=== PATIENT | male | born 1970 | race Caucasian/White ===

== ENCOUNTER 2017-03-08 02:33 | Emergency (ER) | payer BC ==
[~2017-03-08] VITALS: Ht 167.6 cm; Wt 66.7 kg
[2017-03-08] MEDS ORDERED: DEXAMETHASONE 10 MG/ML (DECADRON) 1 ML VIAL ONE (04:07)
--- NOTE | 2017-03-08 04:12 | ED EENT ---
History of Present Illness General Chief Complaint: Oral/Throat Problems Stated Complaint: SORE THROAT,DRAINAGE,POSS FEVER Nursing Triage Note: Patient advises he has been experiencing nasal drainage accompanied by a sore throat since last which has not improved. He denies hx. of fever. Source: patient Exam Limitations: no limitations History of Present Illness Time seen by provider: 03:57 Initial Comments Here with report of upper respiratory symptoms including sore throat and runny nose. Tonight he felt like the sore throat was worsening and that his vocal cords were getting tight. Complains of nasal congestion. This did improve after using [place] tonight. Denies fever. Timing/Duration: gradual Severity: moderate Location: nose, throat Prearrival Treatment: over the counter meds Modifying Factors: Worse With Lying Down, Improves With Rest Associated Symptoms: cough, No fever, nasal congestion/drainage, sore throat, No voice change Allergies and Home Medications Allergies Coded Allergies: No Known Drug Allergies (Unverified , 03/08/17) Review of Systems Constitutional: see HPI, No chills, No fever Eyes: No Symptoms Reported Ears: No Symptoms Reported Nose: see HPI, congestion, clear discharge Mouth: no symptoms reported Throat: see HPI, pain, swelling Respiratory: cough, No short of breath Cardiovascular: no symptoms reported Gastrointestinal: no symptoms reported Skin: no symptoms reported Past Uyhivlj-Yirlej-Drbjei Hx Patient Social History Alcohol Use: Denies Use Recreational Drug Use: No Smoking Status: Never a Smoker Recent Foreign Travel: No Contact w/Someone Who Travel: No Recent Infectious Disease Expo: No Recent Hopitalizations: No Physical Abuse: No Sexual Abuse: No Seasonal Allergies Seasonal Allergies: No Surgeries History of Surgeries: Yes (sinus polyp removal) Respiratory History of Respiratory Disorde: No Cardiovascular History of Cardiac Disorders: No Neurological History of Neurological Disord: No Genitourinary History of Genitourinary Disor: No Gastrointestinal History of Gastrointestinal Di: No Musculoskeletal History of Musculoskeletal Dis: No Endocrine History of Endocrine Disorders: No HEENT History of HEENT Disorders: No Cancer History of Cancer: No Psychosocial History of Psychiatric Problem: No Suicide Risk Score: 0 Blood Transfusions History of Blood Disorders: No Reviewed Nursing Assessment Reviewed/Agree w Nursing PMH: Yes Physical Exam Vital Signs Vital Sign - Last 12Hours 03/08/17 03:10 Temp 98.8 Pulse 83 Resp 14 B/P (MAP) 120/83 (95) Pulse Ox 98 O2 Delivery Room Air General Appearance: WD/WN, no apparent distress Eyes: bilateral eye normal inspection, bilateral eye PERRL, bilateral eye EOMI Ears: bilateral ear auricle normal, bilateral ear canal normal, bilateral ear TM bulging, bilateral ear other (no redness or purulence to either TM.) Nose: No sinus tenderness, other (moderate bilateral sinus congestion with clear rhinorrhea and moderate erythema.) Mouth/Throat: No pharynx swelling, pharynx tenderness, No tonsillar swelling, uvula swelling Neck: full range of motion, supple, lymphadenopathy (R), lymphadenopathy (L) Cardiovascular: regular rate, rhythm, no murmur Respiratory: lungs clear, normal breath sounds Neurologic/Psychiatric: alert, oriented x 3 Skin: normal color, warm/dry Progress/Results/Core Measures Results/Orders Lab Results Laboratory Tests Test 03/08/17 03:05 Range/Units Group A Streptococcus Screen NEGATIVE NEGATIVE Micro Results Microbiology 03/08/17 Influenza Types A,B Antigen ([facility]) - Final, Complete My Orders Orders - YOLI CHRISTIAN MD Influenza A And B Antigens (03/08/17 03:09) Rapid Strep A Screen (03/08/17 03:09) Dexamethasone Injection (Decadron Inject (03/08/17 04:15) Vital Signs/I&O Vital Sign - Last 12Hours 03/08/17 03:10 Temp 98.8 Pulse 83 Resp 14 B/P (MAP) 120/83 (95) Pulse Ox 98 O2 Delivery Room Air Blood Pressure Mean: 95 Progress Note : Progress Note Seen and evaluated. Rapid strep and influenza screen done. These are negative. Decadron 10 mg IM. Discharged home with return precautions. Patient verbalize understanding instructions and agreement with plan. Departure Impression Impression: Primary Impression: Viral upper respiratory infection Disposition: HOME, SELF-CARE Condition: Improved Departure-Patient Inst. Decision time for Depature: 04:10 Referrals: MISAEL BUSTOS MD (PCP/Family) Primary Care Physician Patient Instructions: Viral Upper Respiratory Infection, Adult (DC) Add. Discharge Instructions: All discharge instructions reviewed with patient and/or family. Voiced understanding. You may take ibuprofen 600 mg every 8 hours as needed for pain or fever. You may use Afrin nasal spray or the generic, 12 hour relief, 2 sprays to each nostril twice daily for 3 days only and then stop. Do not use more than 3 days. You may use the [id number] cold medicine that you discussed per package directions. Return for worse pain, fever, vomiting, weakness, breathing problems or other concerns as needed. Drink plenty of fluids and get rest. YOLI CHRISTIAN MD Mar 08, 2017 04:12
[2017-03-08] MEDS ORDERED: DEXAMETHASONE 10 MG/ML (DECADRON) 1 ML VIAL IM ONE (04:15)
[2017-03-08 04:22] VITALS: BP 120/83
== END 2017-03-08 04:26 | disposition home or self-care (01) ==
LOC: EDUNIT# 02:33 → ER 02:37
DX: J06.9 Acute upper respiratory infection, unspecified (principal)
CPT/HCPCS: 87430; 87804; 99284